=== PATIENT | male | born 1950 | race Caucasian/White ===

== ENCOUNTER 2018-04-25 13:26 | Outpatient (CLI) | payer MEDICARE, OTHER ==
--- NOTE | 2018-04-25 16:33 | MRI ---
MR LEFT HINDFOOT WITHOUT CONTRAST: 04/25/18 INDICATION: History of posterior calf pain. COMPARISON: None. FINDINGS: There is a full thickness Achilles tear with distraction of the tendon 4.9 cm from the distal aspect of the tendon. The tear originates 4 cm from the level of the Achilles insertion. There is mild subcu taneous edema surrounding the ankle. Talar dome appears within normal limits. The ATFL, PTFL, and marlo caneofibular are intact. Ligaments are intact. Deltoid ligament is intact. Syndesmotic ligaments appe ar intact. Medial flexor tendons are intact. Peroneal tendons are intact. The extensor tendons are intact. The v isualized aspects of the Lisfranc ligament are intact. Sinus tarsi has a normal signal intensity. Eloisa ntar fascia is unremarkable appearing. Small amount of fluid is seen distending the FHL tendon along the undersurface of the heel. IMPRESSION: 1. Complete Achilles disruption with retraction of the tendon fragments, 4.8 cm. 2. Mild FHL tendosynovitis. 3. Mild subcutaneous edema of the ankle. POS: [facility]
== END 2018-04-25 13:27 | disposition home or self-care (01) ==
LOC: BICMRI 13:26
DX: S86.002A Unspecified injury of left Achilles tendon, initial encounter (principal); R60.0 Localized edema; M65.872 Other synovitis and tenosynovitis, left ankle and foot

== ENCOUNTER 2018-05-03 12:55 | Outpatient (CLI) | payer MEDICARE, OTHER ==
[2018-05-03 14:26] LABS: #Basophils 0.1 thou/uL (0.0-0.2); #Eosinphils 0.2 thou/uL (0.0-0.7); #Lymphocytes 1.9 thou/uL (1.20-3.40); #Monocytes 0.7 thou/uL (0.11-0.59); #Neutrophils 6.7 thou/uL (1.40-6.50); %Basophils 0.7 % (0.0-1.0); %Eosinophils 1.9 % (0.0-10.0); %Monocytes 7.1 % (0.0-10.0); %Neutrophils 70.3 % (42.0-75.0); Hemoglobin 14.7 g/dL (14.0-18.0); Mean Corpuscular Hemoglobin 32.6 pg (27.0-31.0); Mean Corpuscular Volume 98.8 fL (78.0-98.0); Mean Platelet Volume 7.1 fL (7.4-10.4); Platelet Count 310 thou/uL (130-400); Red Blood Cell (RBC) Count 4.52 mill/uL (4.70-6.10); White Blood Cell (WBC) Count 9.6 thou/uL (4.8-10.8)
[2018-05-03 14:43] LABS: Anion Gap 13 mmol/L (10-20); BUN (Urea Nitrogen) 14 mg/dL (8.4-25.7); Calc. Creatinine Clearance 0 mL/min (70-130); Calcium 10.4 mg/dL (7.8-10.44); Carbon Dioxide 29 mmol/L (23-31); Chloride 102 mmol/L (98-107); Estimated GFR-MDRD 64; Glucose 101 mg/dL (80-115); Potassium 3.7 mmol/L (3.5-5.1); Sodium 140 mmol/L (136-145)
--- NOTE | 2018-05-09 20:02 | EKG ---
Test Reason : Blood Pressure : / mmHG Vent. Rate : 088 BPM Atrial Rate : 088 BPM P-R Int : 188 ms QRS Dur : 154 ms QT Int : 392 ms P-R-T Axes : 078 170 066 degrees QTc Int : 474 ms Normal sinus rhythm Indeterminate axis Right bundle branch block Abnormal ECG When compared with ECG of 17-MAY-2012 13:02, Left anterior fascicular block is no longer Present Confirmed by BRENDEN LOUISE (2) on 05/09/2018 8:01:49 PM Referred By: ANDREW Confirmed By:BRENDEN LOUISE
== END 2018-05-03 12:56 | disposition home or self-care (01) ==
LOC: LABBT 12:55
PROVIDERS: ATTEND Orthopaedic Surgery
DX: Z01.818 Encounter for other preprocedural examination (principal); S86.012A Strain of left Achilles tendon, initial encounter
CPT/HCPCS: 80048; 85025; 93005; 93010

== ENCOUNTER 2018-05-05 07:11 | Day surgery (SDC) | payer MEDICARE, OTHER ==
[2018-05-03 13:14] VITALS: BMI 24.4
[2018-05-05] MEDS ORDERED: CEFAZOLIN 2 GM/50 ML BAG ONE (08:26)
[2018-05-05] MEDS ORDERED: Midazolam HCl 2 mg/2 ml Vial ONE (08:39)
[2018-05-05] MEDS ORDERED: Dexamethasone 4 mg/ml Vial ONE (08:39)
[2018-05-05] MEDS ORDERED: Fentanyl 100 MCG/2 ML VIAL ONE ×2 (08:39→09:58)
[2018-05-05] MEDS ORDERED: Bupivacaine HCl 0.5%/Epinephrine 1:200,000/PF 30 ml Vial ONE (11:33)
[2018-05-05] MEDS ORDERED: Ondansetron PF 4 MG/2 ML Vial ONE (12:11)
[2018-05-05] MEDS ORDERED: Rocuronium Bromide 10 MG/ML (10ML VIAL) ONE (12:11)
[2018-05-05] MEDS ORDERED: PROPOFOL 200 MG/20 ML VIAL ONE (12:11)
[2018-05-05] MEDS ORDERED: ePHEDrine/0.9% NaCl/PF SYRINGE 50 mg/10 ml ONE (12:11)
[2018-05-05] MEDS ORDERED: PHENYLEPHRINE-NS 100 MCG/ML 10 ML SYRINGE ONE (12:11)
[2018-05-05] MEDS ORDERED: Glycopyrrolate 0.2 MG/ML 5 ML SYRINGE ONE (12:11)
--- NOTE | 2018-05-05 12:37 | OP ---
DATE OF PROCEDURE: 05/05/2018 PREOPERATIVE DIAGNOSIS: Left Achilles tendon rupture. POSTOPERATIVE DIAGNOSIS: Left Achilles tendon rupture. PROCEDURES PERFORMED: 1. Left-sided open primary repair of Achilles tendon rupture with augmentation using decellularized human dermis patch. 2. Placement of short leg posterior splint. BRAKE LINING DRILLER: None. BLOOD LOSS: Minimal. COMPLICATIONS: None. ANESTHESIA: The patient had general anesthetic. DISPOSITION: He went to recovery room in stable condition. INDICATIONS: This 67-year-old male, who comes in nearly five weeks out from left-sided Achilles tendon rupture. At this time, he wished to have this primarily repaired. DESCRIPTION OF PROCEDURE: After verbal consent forms were explained and signed, he was taken to the operating room and at this time, he was given general anesthetic. He was then carefully placed in the prone position with no pressure on his eyes as well as his privates and all bony prominences were well padded. At this time, a tourniquet was placed on the proximal left thigh and the left lower extremity was then prepped and draped in standard surgical fashion. The limb was then exsanguinated and the tourniquet was taken up to 300 mmHg. A 10 blade was used to incise down through skin, full thickness, and at this time, the Bovie used to coagulate any brisk venous bleeding. New blade was then used to take the paratenon tissue off the underlying Achilles. We then found our ruptured site. The edges were cleaned up with either scissors and/or the 15 blade. The area was thoroughly irrigated and at this time, a #2 Orthocord was run up and down the proximal segment and run up and down the distal segment in Krackow fashion. These were then tied together in the middle bearing the knot. We then ran a Vicryl circumferentially around this to smooth this area out, followed by placing the acellular human dermal graft on top of this and this was sewed into the underlying tendon under some stretch using multiple interrupted Vicryl. 3-0 Vicryl, followed by Prolene stitches were then used to close the skin. A bulky sterile dressing was applied and the patient was splinted in gravity equinus position. The patient was then awakened, he was taken to the recovery room in stable condition. All counts were correct at the end of the case. He did receive preoperative IV antibiotics. Job ID: [id number]
== END 2018-05-05 13:47 | disposition home or self-care (01) ==
LOC: SDC 07:11
PROVIDERS: ATTEND Orthopaedic Surgery
PROC: 0LUP0KZ Supplement Left Lower Leg Tendon with Nonautologous Tissue Substitute, Open Approach (ICD-10-PCS; principal; 2018-05-05)
PROC: 3E0T3BZ Introduction of Anesthetic Agent into Peripheral Nerves and Plexi, Percutaneous Approach (ICD-10-PCS; 2018-05-05)
DX: S86.012A Strain of left Achilles tendon, initial encounter (principal); G89.18 Other acute postprocedural pain; J44.9 Chronic obstructive pulmonary disease, unspecified; Z79.1 Long term (current) use of non-steroidal anti-inflammatories (NSAID); Z79.899 Other long term (current) drug therapy; Z91.041 Radiographic dye allergy status; Z91.048 Other nonmedicinal substance allergy status; Y93.39 Activity, other involving climbing, rappelling and jumping off
CPT/HCPCS: J0670; J1100; J2250; J2405; J2704; J3010

== ENCOUNTER 2019-01-01 15:00 | Outpatient (CLI) | payer MEDICARE, OTHER | END 2019-01-01 15:01 | disposition home or self-care (01) | LOC: SLEEPLAB 15:00 | PROVIDERS: ATTEND Internal Medicine Critical Care Medicine | DX: G47.33 Obstructive sleep apnea (adult) (pediatric) (principal); J44.9 Chronic obstructive pulmonary disease, unspecified; R06.83 Snoring; R09.02 Hypoxemia; K21.9 Gastro-esophageal reflux disease without esophagitis; E78.5 Hyperlipidemia, unspecified | CPT/HCPCS: 95806 ==